=== PATIENT | female | born 1970 | race Caucasian/White ===

== ENCOUNTER 2022-07-03 11:56 | Day surgery (SDC) | payer MEDICAID ==
[~2022-07-03] VITALS: Ht 154.9 cm; Wt 90.9 kg
[~2022-07-03 11:56] MED LIST: SODIUM CHLORIDE 0.9% 1,000 ML ONE
[2022-07-03] MEDS ORDERED: PROPOFOL 1% 20 ML VIAL IVP ONE (12:00)
[2022-07-03] MEDS ORDERED: SODIUM CHLORIDE 0.9% 1,000 ML IV ONE (12:00)
[2022-07-03 12:19] LABS: COVID AG,FIA SOURCE NASAL SWAB
== END 2022-07-03 15:25 | disposition home or self-care (01) ==
LOC: SURGERY 11:56
PROVIDERS: ATTEND Internal Medicine Gastroenterology
DX: K29.70 Gastritis, unspecified, without bleeding (principal); K20.90 Esophagitis, unspecified without bleeding; D50.9 Iron deficiency anemia, unspecified; Z98.890 Other specified postprocedural states; Z79.899 Other long term (current) drug therapy; Z20.822 Contact with and (suspected) exposure to COVID-19
CPT/HCPCS: 43239; 87426; C1769; J2704; J7030; C9803

== ENCOUNTER 2022-07-17 11:17 | Day surgery (SDC) | payer MEDICAID ==
[~2022-07-17] VITALS: Ht 154.9 cm; Wt 90.9 kg
[~2022-07-17 11:17] MED LIST changes: +FERR-82 PO; +SODIUM CHLORIDE 0.9% 1,000 ML IV ONE
[2022-07-17 11:43] LABS: COVID AG,FIA SOURCE NASAL SWAB
[2022-07-17] MEDS ORDERED: LIDOCAINE/PF 2% 5 ML VIAL IM ONE (12:00)
[2022-07-17] MEDS ORDERED: PROPOFOL 1% 20 ML VIAL IVP ONE (12:00)
== END 2022-07-17 14:50 | disposition home or self-care (01) ==
LOC: SURGERY 11:17
PROVIDERS: ATTEND Internal Medicine Gastroenterology
DX: K57.30 Diverticulosis of large intestine without perforation or abscess without bleeding (principal); K64.8 Other hemorrhoids; D50.9 Iron deficiency anemia, unspecified; Z20.822 Contact with and (suspected) exposure to COVID-19; Z79.899 Other long term (current) drug therapy; E66.3 Overweight
CPT/HCPCS: 45378; 87426; 84703; C9803; J2704; J3490; J7030